=== PATIENT | male | born 1975 | race Two or more races ===

== ENCOUNTER 2019-05-02 17:54 | Emergency (ER) | payer SELFPAY ==
[~2019-05-02] VITALS: Ht 165.1 cm; Wt 90.7 kg
[2019-05-02 20:53] VITALS: BP 142/85
[2019-05-02] MEDS ORDERED: HYDROcodone-ACET 10/325MG TAB PO ONE (21:30)
[2019-05-02] MEDS ORDERED: BACLOFEN 10 MG TAB PO ONE (21:30)
[2019-05-02] MEDS ORDERED: DexAMETHasone SOD PHOS 10MG/1ML VIAL INJ IM ONE (21:30)
== END 2019-05-02 22:20 | disposition home or self-care (01) ==
LOC: ER 17:54
DX: S33.5XXA Sprain of ligaments of lumbar spine, initial encounter (principal); M54.32 Sciatica, left side; X58.XXXA Exposure to other specified factors, initial encounter; Y93.89 Activity, other specified; Y92.89 Other specified places as the place of occurrence of the external cause; Y99.8 Other external cause status
CPT/HCPCS: 72100; 96372; 99283; J1100

== ENCOUNTER 2019-11-07 18:29 | Inpatient (IN) | payer BC ==
[~2019-11-07] VITALS: Ht 167.6 cm; Wt 82.9 kg
[2019-11-07 19:51] LABS: Urine Bacteria NONE SEEN /hpf (None Seen); Urine Blood Negative /uL (Negative); Urine Specific Gravity 1.009 (1.001-1.035); Urine WBC 1 /hpf (0 - 3)
[2019-11-07 21:08] LABS: Basophils # (auto) 0.1 uL; Basophils % (auto) 0.6 % (0.0-2.0); Eosinophils # (auto) 0.4 uL; Eosinophils % (auto) 3.5 % (0.0-7.0); Hematocrit 46.1 % (41.0-53.0); Hemoglobin 16.2 g/dL (13.5-17.5); Lymphocytes # (auto) 2.7 uL; Lymphocytes % (auto) 26.4 % (10.0-50.0); Mean Corpuscular Hemoglobin 29.4 pg (28.0-32.0); Mean Corpuscular Hgb Conc. 35.1 g/dL (32.0-36.0); Mean Corpuscular Volume 83.9 fL (80.0-100.0); Monocytes # (auto) 0.7 uL; Monocytes % (auto) 6.4 % (0.0-12.0); Neutrophils # (auto) 6.5 uL; Neutrophils % (auto) 63.1 % (37.0-80.0); Nucleated Red Blood Cells % 0.1 %; Platelet Count (auto) 336 10^3/uL (140-450); Red Cell Distribution Width 12.4 % (11.8-14.3); White Blood Cell 10.3 10^3/uL (4.4-10.8)
[2019-11-07 21:23] LABS: Albumin 3.9 g/dL (3.4-5.0); BUN/Creatinine Ratio 11.5; Calcium 8.8 mg/dL (8.5-10.1); Magnesium 2.1 mg/dL (1.6-2.6); Potassium 4.2 mmol/L (3.5-5.1)
[2019-11-07 21:25] LABS: INR 1.01 (0.9-1.15); Partial Thromboplastin Time 27.7 sec (23.64-32.05)
[2019-11-07 21:27] LABS: Bilirubin, Total 0.5 mg/dL (0.2-1.0); Total Protein 7.2 g/dL (6.4-8.2)
[2019-11-07] MEDS ORDERED: PANTOPRAZOLE 40 MG TAB PO ONE (22:15)
[2019-11-08] MEDS ORDERED: SODIUM CHLORIDE 0.9% 1,000 ML IV ONE (03:30)
[2019-11-08] MEDS ORDERED: CIPROFLOXACIN 400MG/200ML 200 ML IV ONE (03:30)
[2019-11-08] MEDS ORDERED: ONDANSETRON HCL 4 MG/2 ML VIAL IV ONE (03:30)
[2019-11-08] MEDS ORDERED: MORPHINE SULFATE 4 MG/ML SYR/VIAL IV PRN (03:30)
[2019-11-08] MEDS ORDERED: ACETAMINOPHEN 325 MG TAB PO PRN (03:30)
[2019-11-08] MEDS ORDERED: ONDANSETRON HCL 4 MG/2 ML VIAL IV PRN (03:30)
[2019-11-08] MEDS ORDERED: HYDROcodone-ACET 5/325MG TAB PO PRN (03:30)
[2019-11-08] MEDS ORDERED: MORPHINE SULFATE 4 MG/ML SYR/VIAL IV ONE (03:30)
[2019-11-08] MEDS ORDERED: TEMAZEPAM 15 MG CAP PO PRN (03:30)
[2019-11-08] MEDS ORDERED: metroNIDAZOLE 500MG/100ML 100 ML IV ONE (03:30)
[2019-11-08] MEDS ORDERED: DEXTROSE (50%) 50ML SYRG IV PRN (03:30)
[2019-11-08] MEDS: cefTRIAXone 1GM/50ML D5W 50 ML IV SCH (04:30)
[2019-11-08] MEDS: SODIUM CHLORIDE 0.9% 1,000 ML IV SCH ×2 (04:48→15:49)
[2019-11-08] MEDS: ACCU-CHEK COMFORT CURVE STRIP VI SCH ×4 (05:53→23:06)
[2019-11-08] MEDS: InsuLIN REG 1unit/0.01ml Soln (100units/ml) SC SCH ×4 (05:58→23:12)
[2019-11-08] MEDS: PANTOPRAZOLE 40 MG/10 ML VIAL INJ IV SCH (09:15)
[2019-11-08] MEDS: metroNIDAZOLE 500MG/100ML 100 ML IV SCH ×2 (15:00→15:30)
--- NOTE | 2019-11-08 16:10 | NUR ---
MS admit from [facility] admitted to tele/MS after SBAR received. Patient oriented to KULWANT PEREZ RN primary RN, med-surg unit, room 222, bed B, and unit policies regarding patient care and visiting hours. Patient weighed by bedscale and encouraged to call if they need something. All questions and concerns addressed, patient verbalized understanding.
[2019-11-08 16:22] VITALS: BP 134/92
--- NOTE | 2019-11-08 16:34 | NUR ---
PATIENT'S TO BRING IN HOME MEDICATIONS.
--- NOTE | 2019-11-08 16:41 | NUR ---
CALL FROM RADIOLOGY: INTERVENTIONAL RADIOLOGIST TO DISCUSS FURTHER PLAN OF CARE WITH SURGEON MD PEOPLES DUE TO ANATOMICAL LOCATION OF BIOPSY. PATIENT TO BE NO LONGER NPO STATUS.
[2019-11-08 17:00] VITALS: BP 134/92
[2019-11-08] MEDS ORDERED: METF-370 PO (17:55)
[2019-11-08] MEDS ORDERED: CYCL1TAB18 PO (17:55)
[2019-11-08] MEDS ORDERED: CHOL20007 PO (17:55)
[2019-11-08] MEDS ORDERED: HYDR-4833 PO (17:55)
[2019-11-08] MEDS ORDERED: CEPH500C PO (17:55)
[2019-11-08] MEDS ORDERED: IBUP600T27 PO (17:55)
[2019-11-08] MEDS ORDERED: ATOR10TA52 PO (17:55)
--- NOTE | 2019-11-08 18:10 | NUR ---
MD MELENDEZ AT BEDSIDE. NO INTERVENTIONS NECESSARY AT THIS TIME PATIENT ENCOURAGED TO FOLLOW UP IN 3 MONTHS AN OUTPATIENT.
--- NOTE | 2019-11-08 19:09 | NUR ---
CARE ENDORSED TO OSITO LAGUNAS.
--- NOTE | 2019-11-08 19:10 | NUR ---
Received report from the Day Shift RN. Mcleod. Pt. in bed resting alert, awake, oriented x 4, in Room air, breathing symmetrical, calm and unlabored. Pt. denies pain when assessed. Pt. resting quietly and watching TV. Pt. ambulatory, with BRP. Keep pt. room tranquil and dim lighted.
--- NOTE | 2019-11-08 19:25 | NUR ---
Received pt. from the Day Shift RN. Mcleod. Initial assessment done.
--- NOTE | 2019-11-08 20:00 | NUR ---
Assessment done and completed. Pt. resting and watching TV. Maintained pt. safety and provided a quiet environment.
--- NOTE | 2019-11-08 20:00 | NUR ---
Assessment done, pt. is alert, awake, oriented x 4, coherent, able to speak Polish, in Room air, chest expansion equal and breathing unlabored. Pt. is sleeping and resting. Able to ambulate to the BR, with BRP. Keep room quiet and dim lighted.
[2019-11-08 21:48] VITALS: BP 121/77
--- NOTE | 2019-11-08 22:00 | NUR ---
Pt. is sleeping undisturbed.
--- NOTE | 2019-11-08 23:06 | NUR ---
Accucheck taken with results of = 303, pt. given 8 units of Regular Human Insulin SQ @ the [facility]. Pt. aware of the Insulin given and provided health teaching, verbalized understanding. Pt. made aware if feeling hungry to ask for food later.
--- NOTE | 2019-11-09 04:00 | NUR ---
Pt. is sleeping . No s/s of acute change. Pt. is calm and comfortable.
[2019-11-09 04:45] VITALS: BP 120/76
[2019-11-09] MEDS: SODIUM CHLORIDE 0.9% 1,000 ML IV SCH (04:45)
[2019-11-09] MEDS: cefTRIAXone 1GM/50ML D5W 50 ML IV SCH (05:59)
--- NOTE | 2019-11-09 05:59 | NUR ---
Rocephin 1 GM IV antibiotic given @ this time. Pt. verbalized understanding of the med. given.
[2019-11-09] MEDS: ACCU-CHEK COMFORT CURVE STRIP VI SCH ×2 (06:11→11:33)
[2019-11-09] MEDS: InsuLIN REG 1unit/0.01ml Soln (100units/ml) SC SCH ×2 (06:11→11:58)
--- NOTE | 2019-11-09 06:11 | NUR ---
Accucheck taken with result = 144, pt. received 2 units of Regular Human Insulin SQ @ the [facility]. Pt. aware of the treatment given and verbalized understanding.
[2019-11-09 06:24] LABS: Basophils # (auto) 0.1 uL; Basophils % (auto) 0.7 % (0.0-2.0); Eosinophils # (auto) 0.3 uL; Eosinophils % (auto) 3.6 % (0.0-7.0); Hematocrit 46.5 % (41.0-53.0); Hemoglobin 16.5 g/dL (13.5-17.5); Lymphocytes # (auto) 2.1 uL; Lymphocytes % (auto) 25.7 % (10.0-50.0); Mean Corpuscular Hemoglobin 29.6 pg (28.0-32.0); Mean Corpuscular Hgb Conc. 35.6 g/dL (32.0-36.0); Mean Corpuscular Volume 83.2 fL (80.0-100.0); Monocytes # (auto) 0.6 uL; Monocytes % (auto) 6.9 % (0.0-12.0); Neutrophils # (auto) 5.1 uL; Neutrophils % (auto) 63.1 % (37.0-80.0); Nucleated Red Blood Cells % 0.1 %; Platelet Count (auto) 312 10^3/uL (140-450); Red Blood Cells 5.58 10^6/uL (4.5-5.90); Red Cell Distribution Width 12.5 % (11.8-14.3)
[2019-11-09 06:43] LABS: BUN/Creatinine Ratio 17.1; Calcium 8.8 mg/dL (8.5-10.1); Potassium 4.1 mmol/L (3.5-5.1)
[2019-11-09] MEDS: metroNIDAZOLE 500MG/100ML 100 ML IV SCH (07:10)
--- NOTE | 2019-11-09 07:10 | NUR ---
Flagyl 500 mg. IV given -see Emar.
[2019-11-09 09:00] VITALS: BP 131/94
[2019-11-09] MEDS: PANTOPRAZOLE 40 MG/10 ML VIAL INJ IV SCH (09:01)
--- NOTE | 2019-11-09 09:01 | NUR ---
RADIOLOGY CALLED TO SAY THEY MAY BE DOING LUNG [id number] ON PT AND KEEP NPO PAST BREAKFAST. PT AWARE AND VERBALIZED UNDERSTANDING.
--- NOTE | 2019-11-09 09:41 | NUR ---
DR ESPINO REQUESTS THAT PET SCAN BE DONE BEFORE BIOPSY. FREDDIE LAGUNAS INFORMED.
[2019-11-09] MEDS ORDERED: LACTULOSE 20Gm/30ML SOLN PO ONE (10:30)
[2019-11-09 13:00] VITALS: BP 141/93
[2019-11-09 15:44] VITALS: BP 131/94
--- NOTE | 2019-11-09 16:30 | NUR ---
ALL D/C INSTRUCTIONS GIVEN, ALL APPROPRIATE PAPERWORK SIGNED. PT AND VERBALIZED UNDERSTANDING. IV REMOVED. PT DISCHARGED HOME WITH IN ATTENDANCE.
== END 2019-11-09 16:19 | disposition home or self-care (01) | DRG 446 ==
LOC: ER 18:29 → OVERFLOW 18:30 → CENTRAL 11-08 16:15
PROVIDERS: ADMIT Nurse Practitioner; ATTEND Family Medicine
DX: K80.80 Other cholelithiasis without obstruction (principal); M54.5 Low back pain; G89.29 Other chronic pain; F17.210 Nicotine dependence, cigarettes, uncomplicated; E11.9 Type 2 diabetes mellitus without complications; K59.00 Constipation, unspecified; I10 Essential (primary) hypertension; E78.5 Hyperlipidemia, unspecified; K29.70 Gastritis, unspecified, without bleeding; Z90.49 Acquired absence of other specified parts of digestive tract; Z82.49 Family history of ischemic heart disease and other diseases of the circulatory system; Z79.4 Long term (current) use of insulin; Z79.899 Other long term (current) drug therapy; Z71.6 Tobacco abuse counseling; Z87.01 Personal history of pneumonia (recurrent)
CPT/HCPCS: 36415; 71250; 74176; 76705; 78226; 80048; 80053; 81001; 82150; 82962; 83605; 83690; 83735; 85025; 85610; 85730; C9113; G0378; J0696; J1815; J2405; J3490

== ENCOUNTER 2019-11-29 10:47 | Inpatient (IN) | payer BC ==
[~2019-11-29] VITALS: Ht 167.6 cm; Wt 84.1 kg
[~2019-11-29 10:47] MED LIST: ATOR10TA52 PO; CEPH500C PO; CHOL20007 PO; CYCL1TAB18 PO; HYDR-4833 PO; IBUP600T27 PO; METF-370 PO
[2019-11-29] MEDS ORDERED: PANTOPRAZOLE 40 MG/10 ML VIAL INJ IV STA (11:10)
[2019-11-29] MEDS ORDERED: SODIUM CHLORIDE 0.9% 500 ML IVB ONE (11:10)
[2019-11-29] MEDS ORDERED: MORPHINE SULFATE 4 MG/ML SYR/VIAL IV ONE (11:15)
[2019-11-29] MEDS ORDERED: ONDANSETRON HCL 4 MG/2 ML VIAL IV ONE (11:15)
[2019-11-29 11:16] LABS: Urine WBC None Seen /hpf (0 - 3)
[2019-11-29 11:23] LABS: Urine Bacteria NONE SEEN /hpf (None Seen); Urine Blood Negative /uL (Negative); Urine Specific Gravity 1.007 (1.001-1.035)
[2019-11-29 11:35] LABS: Basophils # (auto) 0.1 10 ^3/uL (0-0.2); Basophils % (auto) 1.1 % (0.0-2.0); Eosinophils # (auto) 0.3 10 ^3/uL (0-0.8); Eosinophils % (auto) 4.1 % (0.0-7.0); Hematocrit 46.2 % (41.0-53.0); Hemoglobin 16.3 g/dL (13.5-17.5); Lymphocytes # (auto) 2.5 10 ^3/uL (0.4-5.4); Lymphocytes % (auto) 37.2 % (10.0-50.0); Mean Corpuscular Hemoglobin 29.8 pg (28.0-32.0); Mean Corpuscular Hgb Conc. 35.2 g/dL (32.0-36.0); Mean Corpuscular Volume 84.5 fL (80.0-100.0); Monocytes # (auto) 0.5 10 ^3/uL (0-1.3); Monocytes % (auto) 7.9 % (0.0-12.0); Neutrophils # (auto) 3.3 10 ^3/uL (1.6-8.6); Neutrophils % (auto) 49.7 % (37.0-80.0); Nucleated Red Blood Cells % 0.2 %; Platelet Count (auto) 278 10^3/uL (140-450); Red Blood Cells 5.47 10^6/uL (4.5-5.90); Red Cell Distribution Width 13.1 % (11.8-14.3); White Blood Cell 6.6 10^3/uL (4.4-10.8)
[2019-11-29 12:04] LABS: Albumin 3.9 g/dL (3.4-5.0); Calcium 9.3 mg/dL (8.5-10.1); Potassium 4.3 mmol/L (3.5-5.1)
[2019-11-29 12:08] LABS: BUN/Creatinine Ratio 13.9; Bilirubin, Total 0.5 mg/dL (0.2-1.0); Total Protein 7.3 g/dL (6.4-8.2)
[2019-11-29] MEDS ORDERED: DEXTROSE (50%) 50ML SYRG IV PRN (14:45)
[2019-11-29] MEDS ORDERED: ACETAMINOPHEN 500 MG TAB PO PRN (14:45)
[2019-11-29] MEDS: SODIUM CHLORIDE 0.9% 1,000 ML IV SCH (15:08)
[2019-11-29 17:00] VITALS: BP 126/81
[2019-11-29] MEDS: InsuLIN REG 1unit/0.01ml Soln (100units/ml) SC SCH ×2 (18:19→21:56)
[2019-11-29] MEDS: ACCU-CHEK COMFORT CURVE STRIP VI SCH ×2 (18:20→21:56)
[2019-11-29] MEDS: FAMOTIDINE 20 MG TAB PO SCH (21:53)
[2019-11-29] MEDS: MORPHINE SULF INJ 2 MG/ML SYRINGE 1ML IV PRN (21:57)
[2019-11-29 22:00] VITALS: BP 113/74
[2019-11-30] MEDS: SODIUM CHLORIDE 0.9% 1,000 ML IV SCH ×3 (00:44→22:23)
[2019-11-30] MEDS: MORPHINE SULF INJ 2 MG/ML SYRINGE 1ML IV PRN ×2 (05:18→18:34)
[2019-11-30 05:30] VITALS: BP 119/72
[2019-11-30] MEDS: ACCU-CHEK COMFORT CURVE STRIP VI SCH ×4 (05:34→22:24)
[2019-11-30] MEDS: InsuLIN REG 1unit/0.01ml Soln (100units/ml) SC SCH ×4 (06:17→22:00)
[2019-11-30 08:30] VITALS: BP 120/71
[2019-11-30] MEDS: FAMOTIDINE 20 MG TAB PO SCH ×2 (10:00→22:23)
[2019-11-30] MEDS ORDERED: BUPIVACAINE 0.25% INJ 50ML VIAL ONE (10:58)
[2019-11-30 11:57] LABS: INR 1.03 (0.9-1.15); Partial Thromboplastin Time 26.2 sec (23.64-32.05)
[2019-11-30] MEDS: HYDROcodone-ACET 5/325MG TAB PO PRN (16:47)
[2019-11-30 17:00] VITALS: BP 123/76
[2019-11-30] MEDS: PROMETHAZINE HCL 25 MG/ML 1ML IV PRN (18:35)
[2019-11-30] MEDS: MUPIROCIN 2% OINT 15gm or 22gm TOP SCH (22:00)
[2019-11-30 22:05] VITALS: BP 122/72
[2019-12-01 05:24] VITALS: BP 136/88
[2019-12-01] MEDS: ACCU-CHEK COMFORT CURVE STRIP VI SCH ×4 (06:07→22:00)
[2019-12-01] MEDS: SODIUM CHLORIDE 0.9% 1,000 ML IV SCH ×2 (06:07→19:41)
[2019-12-01] MEDS: InsuLIN REG 1unit/0.01ml Soln (100units/ml) SC SCH ×4 (06:08→22:00)
[2019-12-01] MEDS: MORPHINE SULF INJ 2 MG/ML SYRINGE 1ML IV PRN ×2 (06:08→11:52)
[2019-12-01 08:58] VITALS: BP 143/89
[2019-12-01] MEDS: FAMOTIDINE 20 MG TAB PO SCH ×2 (10:38→22:38)
[2019-12-01] MEDS: MUPIROCIN 2% OINT 15gm or 22gm TOP SCH ×2 (10:38→22:33)
[2019-12-01] MEDS: PROMETHAZINE HCL 25 MG/ML 1ML IV PRN (11:53)
[2019-12-01 12:48] VITALS: BP 131/91
[2019-12-01] MEDS ORDERED: SUCCINYLCHOLINE CHLORIDE 20 MG/ML 10ML VIAL IV ONE (16:07)
[2019-12-01] MEDS ORDERED: ceFAZolin 1GM/50ML 50 ML IV ONE (16:17)
[2019-12-01] MEDS ORDERED: MIDAZOLAM HCL 1MG/1ML-2 ML VIAL ONE (16:24)
[2019-12-01] MEDS ORDERED: fentaNYL CITRATE 100 MCG/2 ML VL ONE ×2 (16:24→17:38)
[2019-12-01] MEDS ORDERED: ROCURONIUM 10MG/ML 10ML VIAL IV ONE (16:25)
[2019-12-01] MEDS ORDERED: PROPOFOL 10 MG/ML 20 ML IV ONE (16:40)
[2019-12-01] MEDS ORDERED: LIDOCAINE 1% HCL (LOCAL ANESTH.) INJ 20ML MDV ONE (16:41)
[2019-12-01] MEDS ORDERED: ePHEDrine SULFATE 50 MG/ML AMP IV PRN (18:15)
[2019-12-01] MEDS ORDERED: ONDANSETRON HCL 4 MG/2 ML VIAL IV PRN (18:15)
[2019-12-01] MEDS ORDERED: hydrALAZINE HCL 20 MG/ML VL IV PRN (18:15)
[2019-12-01] MEDS ORDERED: HYDROmorphone HCL 2 MG/ML VL IV PRN ×2 (18:15)
[2019-12-01 22:00] VITALS: BP 142/93
[2019-12-01] MEDS: HYDROcodone-ACET 5/325MG TAB PO PRN (22:39)
[2019-12-01] MEDS: TEMAZEPAM 15 MG CAP PO PRN (23:31)
[2019-12-02] MEDS: SODIUM CHLORIDE 0.9% 1,000 ML IV SCH ×3 (02:44→22:44)
[2019-12-02 05:00] VITALS: BP 132/82
[2019-12-02] MEDS: ACCU-CHEK COMFORT CURVE STRIP VI SCH ×4 (06:56→22:00)
[2019-12-02] MEDS: InsuLIN REG 1unit/0.01ml Soln (100units/ml) SC SCH ×4 (07:00→22:00)
[2019-12-02 08:00] VITALS: BP 141/84
[2019-12-02] MEDS: PROMETHAZINE HCL 25 MG/ML 1ML IV PRN ×3 (08:11→16:31)
[2019-12-02] MEDS: MORPHINE SULF INJ 2 MG/ML SYRINGE 1ML IV PRN ×3 (08:11→16:32)
[2019-12-02 08:55] VITALS: BP 141/84
[2019-12-02] MEDS: MUPIROCIN 2% OINT 15gm or 22gm TOP SCH ×2 (09:08→22:06)
[2019-12-02] MEDS: FAMOTIDINE 20 MG TAB PO SCH ×2 (09:08→21:52)
[2019-12-02] MEDS: metroNIDAZOLE 500MG/100ML 100 ML IV SCH ×3 (10:05→21:52)
[2019-12-02] MEDS: levoFLOXacin 500MG 100 ML IV SCH (11:16)
[2019-12-02] MEDS ORDERED: NEOSTIGMINE 1 MG/ML INJ (10mg/10ML VIAL) IV ONE (12:44)
[2019-12-02] MEDS ORDERED: GLYCOPYRROLATE 0.2 MG/ML 1ML VIAL IV ONE (12:44)
[2019-12-02 12:47] VITALS: BP 138/81
[2019-12-02 17:25] VITALS: BP 144/84
[2019-12-02 21:00] VITALS: BP 146/81
[2019-12-02] MEDS: HYDROcodone-ACET 5/325MG TAB PO PRN (22:05)
[2019-12-02] MEDS: TEMAZEPAM 15 MG CAP PO PRN (22:42)
[2019-12-03 05:00] VITALS: BP 141/81
[2019-12-03 05:27] LABS: Basophils # (auto) 0 10 ^3/uL (0-0.2); Basophils % (auto) 0.5 % (0.0-2.0); Eosinophils # (auto) 0.3 10 ^3/uL (0-0.8); Eosinophils % (auto) 3.4 % (0.0-7.0); Hemoglobin 15.2 g/dL (13.5-17.5); Lymphocytes # (auto) 2.3 10 ^3/uL (0.4-5.4); Mean Corpuscular Hemoglobin 29.8 pg (28.0-32.0); Mean Corpuscular Hgb Conc. 35.3 g/dL (32.0-36.0); Mean Corpuscular Volume 84.5 fL (80.0-100.0); Monocytes # (auto) 0.6 10 ^3/uL (0-1.3); Monocytes % (auto) 7.7 % (0.0-12.0); Neutrophils # (auto) 4.3 10 ^3/uL (1.6-8.6); Neutrophils % (auto) 57.4 % (37.0-80.0); Nucleated Red Blood Cells % 0.1 %; Platelet Count (auto) 237 10^3/uL (140-450); Red Blood Cells 5.09 10^6/uL (4.5-5.90); White Blood Cell 7.5 10^3/uL (4.4-10.8)
[2019-12-03 05:43] LABS: BUN/Creatinine Ratio 10.1; Calcium 8.6 mg/dL (8.5-10.1); Potassium 4.2 mmol/L (3.5-5.1)
[2019-12-03 05:46] LABS: Bilirubin, Total 0.5 mg/dL (0.2-1.0); Total Protein 6.5 g/dL (6.4-8.2)
[2019-12-03] MEDS: metroNIDAZOLE 500MG/100ML 100 ML IV SCH ×3 (05:59→22:20)
[2019-12-03] MEDS: ACCU-CHEK COMFORT CURVE STRIP VI SCH ×4 (07:16→22:20)
[2019-12-03] MEDS: InsuLIN REG 1unit/0.01ml Soln (100units/ml) SC SCH ×4 (07:19→22:22)
[2019-12-03 09:00] VITALS: BP 155/99
[2019-12-03] MEDS: FAMOTIDINE 20 MG TAB PO SCH ×2 (09:26→22:20)
[2019-12-03] MEDS: levoFLOXacin 500MG 100 ML IV SCH (09:27)
[2019-12-03] MEDS: MUPIROCIN 2% OINT 15gm or 22gm TOP SCH ×2 (09:27→22:23)
[2019-12-03] MEDS: SODIUM CHLORIDE 0.9% 1,000 ML IV SCH ×2 (09:27→18:44)
[2019-12-03 13:00] VITALS: BP 152/91
[2019-12-03 17:00] VITALS: BP 137/94
[2019-12-03 20:00] VITALS: BP 150/84
[2019-12-03 21:00] VITALS: BP 150/84
[2019-12-04] MEDS: SODIUM CHLORIDE 0.9% 1,000 ML IV SCH (04:44)
[2019-12-04 05:00] VITALS: BP 118/85
[2019-12-04] MEDS: metroNIDAZOLE 500MG/100ML 100 ML IV SCH (06:06)
[2019-12-04] MEDS: ACCU-CHEK COMFORT CURVE STRIP VI SCH ×2 (06:14→11:30)
[2019-12-04] MEDS: InsuLIN REG 1unit/0.01ml Soln (100units/ml) SC SCH ×2 (06:15→11:30)
[2019-12-04 09:00] VITALS: BP 134/89
[2019-12-04] MEDS: FAMOTIDINE 20 MG TAB PO SCH (09:19)
[2019-12-04] MEDS: MUPIROCIN 2% OINT 15gm or 22gm TOP SCH (09:19)
[2019-12-04] MEDS: levoFLOXacin 500MG 100 ML IV SCH (09:25)
[2019-12-04 13:00] VITALS: BP 147/94
== END 2019-12-04 13:13 | disposition home or self-care (01) | DRG 418 ==
LOC: ER 10:47 → EAST 10:48
PROVIDERS: ADMIT Internal Medicine; ATTEND Family Medicine
PROC: 0FT44ZZ Resection of Gallbladder, Percutaneous Endoscopic Approach (ICD-10-PCS; principal; 2019-12-01 16:20)
DX: K80.00 Calculus of gallbladder with acute cholecystitis without obstruction (principal); K56.50 Intestinal adhesions [bands], unspecified as to partial versus complete obstruction; F17.210 Nicotine dependence, cigarettes, uncomplicated; E11.9 Type 2 diabetes mellitus without complications; E66.9 Obesity, unspecified; K76.0 Fatty (change of) liver, not elsewhere classified; E78.5 Hyperlipidemia, unspecified; J98.4 Other disorders of lung; Z79.899 Other long term (current) drug therapy; Z90.49 Acquired absence of other specified parts of digestive tract; Z82.49 Family history of ischemic heart disease and other diseases of the circulatory system; Z68.29 Body mass index [BMI] 29.0-29.9, adult
CPT/HCPCS: 36415; 71045; 76705; 80053; 81001; 82150; 82962; 83036; 83690; 83880; 84484; 85025; 85610; 85730; 86850; 86900; 86901; 87081; 93306; 96361; 96374; 96375; C9113; G0378; J0330; J0690; J1815; J1956; J2001; J2250; J2405; J2704; J3490

== ENCOUNTER → 2020-02-06 | Emergency (ER) | payer BC, MEDICAID ==
[~2020-02-06] VITALS: Ht 172.7 cm; Wt 81.6 kg
[~2020-02-06] MED LIST changes: +HYDROmorphone HCL 2 MG/ML VL IV ONE; +PROMETHAZINE HCL 25 MG/ML 1ML IV PRN; +SODIUM CHLORIDE 0.9% 1,000 ML IVB ONE
[2020-02-06 10:27] LABS: Basophils # (auto) 0.1 10 ^3/uL (0-0.2); Eosinophils # (auto) 0.2 10 ^3/uL (0-0.8); Eosinophils % (auto) 2.4 % (0.0-7.0); Monocytes # (auto) 0.4 10 ^3/uL (0-1.3); Neutrophils # (auto) 4.2 10 ^3/uL (1.6-8.6); Nucleated Red Blood Cells % 0.1 %; White Blood Cell 6.9 10^3/uL (4.4-10.8)
[2020-02-06 10:28] LABS: Basophils % (auto) 0.9 % (0.0-2.0); Hematocrit 50.1 % (41.0-53.0); Hemoglobin 17.3 g/dL (13.5-17.5); Lymphocytes % (auto) 29.3 % (10.0-50.0); Mean Corpuscular Hemoglobin 29.1 pg (28.0-32.0); Mean Corpuscular Hgb Conc. 34.4 g/dL (32.0-36.0); Mean Corpuscular Volume 84.5 fL (80.0-100.0); Neutrophils % (auto) 61.4 % (37.0-80.0); Platelet Count (auto) 280 10^3/uL (140-450); Red Blood Cells 5.94 10^6/uL (4.5-5.90)
[2020-02-06 10:40] LABS: Albumin 3.9 g/dL (3.4-5.0); Calcium 9.2 mg/dL (8.5-10.1)
[2020-02-06 10:43] LABS: BUN/Creatinine Ratio 12.1; Bilirubin, Total 0.8 mg/dL (0.2-1.0); Total Protein 7.3 g/dL (6.4-8.2)
[2020-02-06 11:01] LABS: Magnesium 2.4 mg/dL (1.6-2.6)
[2020-02-06 11:20] LABS: Urine Bacteria NONE SEEN /hpf (None Seen); Urine Blood Negative /uL (Negative); Urine WBC <1 /hpf (0 - 3)
[2020-02-06 11:25] LABS: Alcohol, Urine < 3.0 mg/dL (0-5); Amphetamine Screen, Urine NEGATIVE (NEGATIVE); Barbiturate Scree,Urine NEGATIVE (NEGATIVE); Benzodiazephine Screen, Urine NEGATIVE (NEGATIVE); Cannabinoid Screen, Urine NEGATIVE (NEGATIVE); Cocaine Screen, Urine NEGATIVE (NEGATIVE); Opiate Scree,Urine NEGATIVE (NEGATIVE); Phencyclidine Screen, Urine NEGATIVE (NEGATIVE)
[2020-02-06 12:00] VITALS: BP 145/92
== END | disposition home or self-care (01) ==
LOC: ER 09:31
DX: K66.0 Peritoneal adhesions (postprocedural) (postinfection) (principal); E11.65 Type 2 diabetes mellitus with hyperglycemia; R91.1 Solitary pulmonary nodule; E78.5 Hyperlipidemia, unspecified
CPT/HCPCS: 36415; 71046; 74176; 80053; 80307; 81001; 82962; 83690; 83735; 85025; 93005; 96374; 99285; J1170